=== PATIENT | male | born 1990 | race Caucasian/White ===

== ENCOUNTER 2018-07-06 12:38 | Emergency (ER) | payer BC, OTHER ==
[2018-07-06] MEDS ORDERED: Ibuprofen TAB* 600 MG PO ONE (13:30)
[2018-07-06] MEDS ORDERED: Ibuprofen TAB* 600 MG ONE (13:31)
--- NOTE | 2018-07-06 13:49 | RAD ---
HISTORY: trauma COMPARISONS: None VIEWS: 3 , Frontal, lateral, and oblique views of the second digit of the left hand FINDINGS: BONE DENSITY: Normal. BONES: There is no displaced fracture. JOINTS: There is no arthropathy. ALIGNMENT: There is no dislocation. SOFT TISSUES: Unremarkable. OTHER FINDINGS: None. IMPRESSION: NO ACUTE OSSEOUS INJURY. IF SYMPTOMS PERSIST, RECOMMEND REPEAT IMAGING.
[2018-07-06] MEDS ORDERED: HYDROcodone/ACETAMIN 5-325 MG* 1 TAB PO ONE (14:38)
[2018-07-06] MEDS ORDERED: HYDROcodone/ACETAMIN 5-325 MG* 1 TAB ONE (14:40)
[2018-07-06] MEDS ORDERED: Lidocaine 1% INJ* 10 MG/ML 30 ML SDV INJ ONE (14:43)
--- NOTE | 2018-07-06 15:02 | ED ---
Laceration/Wound HPI - HPI Summary HPI Summary: Patient is a 28-year-old male presenting to the ED with a injury to the distal tip of the left index finger from a router table saw. Bleeding is well controlled on arrival. He endorses 10/10 pain, constant and throbbing. He does not take any medications [employer]. Denies any numbness or tingling. He's never injured the area before. Nail involvement. - History of Current Complaint Stated Complaint: FINGER LAC Time Seen by Provider: 07/06/18 12:51 Hx Obtained From: Patient Mechanism of Injury: Sharp/Blunt Trauma Onset/Duration: Sudden Onset Aggravating: Movement Alleviating: Compression Timing: Constant Onset Severity: Severe Current Severity: Severe Pain Intensity: 10 Pain Scale Used: 0-10 Numeric Associated Signs & Symptoms: Negative - Allergy/Home Medications Allergies/Adverse Reactions: Allergies Allergy/AdvReac Type Severity Reaction Status Date / Time No Known Allergies Allergy Verified 07/06/18 12:49 PMH/Surg Hx/FS Hx/Imm Hx Previously Healthy: Yes - Immunization History Date of Tetanus Vaccine: UTD per patient Hx Pertussis Vaccination: No Immunizations Up to Date: Yes Infectious Disease History: No Infectious Disease History: Denies: Traveled Outside the [place] in Last 30 Days - Social History Occupation: Employed Full-time Lives: With Family Alcohol Use: Daily Alcohol Amount: 4 pints per day Hx Substance Use: No Substance Use Type: Reports: None Hx Tobacco Use: Yes Smoking Status (MU): Heavy Every Day Tobacco Smoker Review of Systems Constitutional: Negative Negative: Fever, Chills, Fatigue, Skin Diaphoresis Negative: Epistaxis, Dental Pain Negative: Palpitations, Chest Pain Genitourinary: Negative Positive: no symptoms reported, see HPI Negative: Arthralgia, Myalgia Positive: Other - nail avulsion injury Neurological: Negative Psychological: Normal All Other Systems Reviewed And Are Negative: Yes Physical Exam Triage Information Reviewed: Yes Vital Signs On Initial Exam: Initial Vitals Temp Pulse Resp BP Pulse Ox 97.7 F 73 22 166/92 100 07/06/18 12:46 07/06/18 12:46 07/06/18 12:46 07/06/18 12:46 07/06/18 12:46 Vital Signs Reviewed: Yes Appearance: Positive: Well-Appearing, Well-Nourished Skin: Positive: Warm, Skin Color Reflects Adequate Perfusion, Other - avulsion to the distal tip of the left index finger Head/Face: Positive: Normal Head/Face Inspection Eyes: Positive: EOMI, FLOR, Conjunctiva Clear Neck: Positive: Supple, No Lymphadenopathy Respiratory/Lung Sounds: Positive: Clear to Auscultation, Breath Sounds Present Cardiovascular: Positive: Normal, RRR, Pulses are Symmetrical in both Upper and Lower Extremities Musculoskeletal: Positive: Normal, Strength/ROM Intact Neurological: Positive: Alert, Oriented to Person Place, Time, Speech Normal Psychiatric: Positive: Normal Diagnostics - Vital Signs Vital Signs Temp Pulse Resp BP Pulse Ox 07/06/18 12:46 97.7 F 73 22 166/92 100 - Laboratory Lab Statement: Any lab studies that have been ordered have been reviewed, and results considered in the medical decision making process. Laceration Repair Course/Dx - Course Course Of Treatment: Physical examination, there is nail involvement to the distal tip of the index finger with an avulsion injury from a router table saw. Tetanus is up-to-date. No antibiotics needed. X-ray obtained which shows no bony involvement. Digital block with good effect, washed area thoroughly. Surgicel and Xeroform dressing with tube gauze wrap. Patient will continue to redress the area daily. He is given Tylenol as well as hydrocodone 2 in the ED. Prescription for such is given. - Clinical Impression Provider Diagnoses: Avulsion, skin Discharge - Sign-Out/Discharge Documenting (check all that apply): Patient Departure - Discharge Plan Condition: Stable Disposition: HOME Prescriptions: Hydrocodone/Acetaminophen [Hydrocodone-Acetamin 10-325 mg] 1 each PO TID #10 tablet MDD 3 Patient Education Materials: Skin Avulsion (ED) Forms: *Work Release Referrals: Tatyana Topete MD [Primary Care Provider] - Additional Instructions: Change dressing once per day until healing If in a dirty environment - keep the area covered wash with soap and water daily pat dry - Billing Disposition and Condition Condition: STABLE Disposition: Home
[2018-07-06 15:12] VITALS: BP 140/74
== END 2018-07-06 15:10 | disposition home or self-care (01) ==
LOC: ED 12:38
DX: S61.211A Laceration without foreign body of left index finger without damage to nail, initial encounter (principal); W29.8XXA Contact with other powered hand tools and household machinery, initial encounter; Y92.9 Unspecified place or not applicable; F17.210 Nicotine dependence, cigarettes, uncomplicated
CPT/HCPCS: 73140; 96374; 99282; A9270-GY